=== PATIENT | female | born 1940 | race Hispanic/Latino ===

== ENCOUNTER 2018-01-06 19:51 | Emergency (ER) | payer SELFPAY | END 2018-01-06 21:22 | disposition home or self-care (01) | LOC: ERS 19:51 | DX: S27.0XXA Traumatic pneumothorax, initial encounter (principal); I10 Essential (primary) hypertension; Z87.891 Personal history of nicotine dependence; Z79.899 Other long term (current) drug therapy; W19.XXXA Unspecified fall, initial encounter | CPT/HCPCS: 99284 ==

== ENCOUNTER 2018-01-08 12:47 | Emergency (ER) | payer SELFPAY ==
--- NOTE | 2018-01-08 13:26 | RAD ---
2 VIEWS CHEST: Date: 01/08/18 PROVIDED CLINICAL HISTORY: Rib fractures and pneumothorax. FINDINGS: Comparison made with examination from [facility] dated 01/06/18. Right-sided pneumothorax is redemonstrated. Parenchymal opacity at the medial right upper lung zone i s presumably on the basis of atelectasis, but is incompletely assessed. Multiple displaced right-side d rib fractures are redemonstrated. Small bilateral pleural effusions cannot be excluded due to blunt ing of the posterior costophrenic angles on the lateral view. The left lung remains clear. IMPRESSION: 1. Multiple right-sided rib fractures with stable right pneumothorax. 2. Parenchymal opacity involving the right upper lung zone may reflect atelectasis. Follow-up is rec ommended to exclude other etiologies. POS: [facility]
== END 2018-01-08 14:00 | disposition home or self-care (01) ==
LOC: ERS 12:47
DX: J93.9 Pneumothorax, unspecified (principal); I10 Essential (primary) hypertension; Z87.891 Personal history of nicotine dependence; Z79.899 Other long term (current) drug therapy
CPT/HCPCS: 71046

== ENCOUNTER 2018-01-16 14:00 | Outpatient (CLI) | payer OTHER, SELFPAY ==
--- NOTE | 2018-01-16 15:41 | RAD ---
TWO VIEWS OF THE CHEST: 01/16/18 COMPARISON: 01/08/18. HISTORY: Pneumothorax. FINDINGS: Two views of the chest show normal sized cardiomediastinal silhouette. Increased interstitial marking s are present. Biapical pleural thickening is seen. There is no evidence of consolidation, mass, pne umothorax or pleural effusion. There are multiple remote healing right rib fractures. IMPRESSION: No evidence of acute cardiopulmonary disease. POS: H
== END 2018-01-16 14:01 | disposition home or self-care (01) ==
LOC: RAD 14:00
PROVIDERS: ATTEND Thoracic Surgery (Cardiothoracic Vascular Surgery)
DX: J93.9 Pneumothorax, unspecified (principal)
CPT/HCPCS: 71046